=== PATIENT | female | born 1995 | race Caucasian/White ===

== ENCOUNTER 2016-11-16 05:46 | Emergency (ER) | payer OTHER ==
[~2016-11-16] VITALS: Ht 170.2 cm; Wt 107.7 kg
[~2016-11-16 05:46] MED LIST: BACTRIM,SEPT1 TABLET PO; CLEOCIN300 MG PO; KEFLEX500 MG PO; MACROBID100 MG PO; Motrin PO; PRENATAL TABLE1 EAC3 PO; Percocet 5/325,Endoc PO; TYLENOL WITH C1 EACH PO; ZOFRAN ODT4 MG PO; ZOFRAN4 MG PO
[2016-11-16] MEDS ORDERED: PEN-VEE K,VEET500 MG PO (06:27)
[2016-11-16 07:43] VITALS: BP 125/75
== END 2016-11-16 07:44 | disposition home or self-care (01) ==
LOC: EME 05:46
PROC: 3E0T3BZ Introduction of Anesthetic Agent into Peripheral Nerves and Plexi, Percutaneous Approach (ICD-10-PCS; principal; 2016-11-16)
DX: O99.613 Diseases of the digestive system complicating pregnancy, third trimester (principal); K02.9 Dental caries, unspecified; K08.89 Other specified disorders of teeth and supporting structures; Z3A.32 32 weeks gestation of pregnancy
CPT/HCPCS: 99281; 99283; S0020

== ENCOUNTER 2016-11-27 13:34 | Outpatient (CLI) | payer OTHER ==
[~2016-11-27] VITALS: Ht 167.6 cm; Wt 109.0 kg
[~2016-11-27 13:34] MED LIST changes: +PEN-VEE K,VEET500 MG PO
[2016-11-27 13:37] VITALS: BP 111/63
[2016-11-27] MEDS ORDERED: KEFLEX500 MG PO (14:01)
[2016-11-27] MEDS ORDERED: PRENATAL TABLE1 EAC3 PO (14:03)
[2016-11-27 16:00] LABS: ADD MIUA? YES; BILIRUBIN NEGATIVE; BLOOD NEGATIVE; COLOR YELLOW ((YELLOW)); GLUCOSE (STRIP) NEGATIVE; KETONES NEGATIVE; LEUKOCYTES LARGE; NITRITE NEGATIVE; PROTEIN (STRIP) NEGATIVE; SPECIFIC GRAVITY 1.006 (1.000-1.030); UROBILINOGEN 0.2 MG/DL (0.2-1.0)
[2016-11-27 16:11] LABS: RED BLOOD CELLS 0-5 /HPF (0-5); WHITE BLOOD CELLS 20-30 /HPF (0-5)
[2016-11-27 16:12] LABS: BACTERIA 3+ /HPF; EPITHELIAL CELLS 1+ /HPF; MUCUS TRACE /LPF; UCUL ADDED? YES
[2016-11-27 16:22] LABS: AMPHETAMINES QUANT VALUE 0 NG/ML; BARBITUATES QUANT VALUE 0 NG/ML; BENZODIAZEPINES QUANT VALUE 0 NG/ML; BENZODIAZEPINES, URINE SCREEN Negative (200 ng/mL); MARIJUANA QUANT VALUE 0 NG/ML; OPIATES QUANTITATIVE VALUE 0 NG/ML; PHENCYCLIDINE QUANT VALUE 0 NG/ML
== END 2016-11-27 15:47 | disposition home or self-care (01) ==
LOC: LDRP-OP → 2WEST 13:35 → LDRP-OP 01-26 02:45
PROVIDERS: Advanced Practice Midwife
DX: O46.92 Antepartum hemorrhage, unspecified, second trimester (principal); O99.89 Other specified diseases and conditions complicating pregnancy, childbirth and the puerperium; Z3A.25 25 weeks gestation of pregnancy
CPT/HCPCS: 59025; 80306 90; 81003; 87086; G0378

== ENCOUNTER 2016-12-03 11:06 | Inpatient (IN) | payer OTHER ==
[2016-12-03] VITALS (8 sets, daily range): BP systolic 98–129; BP diastolic 56–80
[~2016-12-03] VITALS: Ht 167.6 cm; Wt 108.7 kg
[2016-12-03 12:07] LABS: HEMATOCRIT 28.6 % (36.0-46.0); MCH 24.9 PG (29.0-34.0); MCHC 31.5 G/DL (30.0-36.0); MCV 79.2 FL (83-99); MEAN PLAT.VOLUME 9.8 uM^3 (9.5-12.4); PLATELET COUNT 157 K/uL (156-360); RBC DIS.WIDTH-CV 13.9 % (11.8-14.6); RBC DIS.WIDTH-SD 39.6 % (39-53); RED BLOOD COUNT 3.61 M/uL (3.80-5.20); WHITE BLOOD COUNT 9.9 K/uL (4.1-10.2)
[2016-12-03 12:10] LABS: EOSINOPHIL (%) 0.2 % (0-5); IMMATURE GRANULOCYTE (%) 0.6 % (0.0-0.7); IMMATURE GRANULOCYTE COUNT 0.1 K/uL; MONOCYTE (%) 7.1 % (3-12); MONOCYTE COUNT 0.7 K/uL (0-0.8); NEUTROPHIL (%) 71.7 % (45-76); NEUTROPHIL COUNT 7.1 K/uL (1.8-6.4)
[2016-12-03 12:19] LABS: AMPHETAMINES QUANT VALUE 0 NG/ML; BARBITUATES QUANT VALUE 0 NG/ML; BENZODIAZEPINES QUANT VALUE 0 NG/ML; BENZODIAZEPINES, URINE SCREEN Negative (200 ng/mL); MARIJUANA QUANT VALUE 0 NG/ML; OPIATES QUANTITATIVE VALUE 0 NG/ML; PHENCYCLIDINE QUANT VALUE 0 NG/ML
[2016-12-03 12:20] LABS: ANION GAP 8 MEQ/L (2-14); CHLORIDE 107 MEQ/L (99-109); POTASSIUM 3.9 MEQ/L (3.7-5.4); SAMPLE HEMOLYSIS CHECK 0; SAMPLE ICTERIC CHECK 0; SAMPLE LIPEMIA CHECK 0; SODIUM 137 MEQ/L (136-147); TOTAL BILIRUBIN 0.3 MG/DL (0.0-1.0)
[2016-12-03 12:26] LABS: ALKALINE PHOSPHATASE 142 IU/L (3-129); GFR ESTIMATE (CALCULATED) > 59 mL/min/; GLUCOSE 74 mg/dL (70-99); UREA NITROGEN (BUN) 8 mg/dL (9-23)
[2016-12-03 12:41] LABS: FIBRINOGEN 367 MG/DL (160-450)
[2016-12-03 12:48] LABS: PTT 27.9 (25-32)
[2016-12-03 14:00] LABS: HEMATOCRIT 28.1 % (36.0-46.0); MCV 79.4 FL (83-99)
[2016-12-04 00:32] VITALS: BP 118/61
[2016-12-04 03:27] VITALS: BP 96/53
[2016-12-04 07:04] LABS: EOSINOPHIL (%) 0.4 % (0-5); HEMATOCRIT 24.5 % (36.0-46.0); IMMATURE GRANULOCYTE (%) 0.4 % (0.0-0.7); LYMPHOCYTE COUNT 2.5 K/uL (1.0-2.8); MCH 24.9 PG (29.0-34.0); MCV 80.3 FL (83-99); MEAN PLAT.VOLUME 9.8 uM^3 (9.5-12.4); MONOCYTE (%) 7.8 % (3-12); MONOCYTE COUNT 0.8 K/uL (0-0.8); NEUTROPHIL (%) 67.1 % (45-76); NEUTROPHIL COUNT 6.9 K/uL (1.8-6.4); PLATELET COUNT 134 K/uL (156-360); RBC DIS.WIDTH-CV 14.1 % (11.8-14.6); RED BLOOD COUNT 3.05 M/uL (3.80-5.20); WHITE BLOOD COUNT 10.3 K/uL (4.1-10.2)
[2016-12-04 07:38] VITALS: BP 115/77
[2016-12-04 15:04] VITALS: BP 100/57
[2016-12-04 18:57] VITALS: BP 114/64
[2016-12-04 22:10] VITALS: BP 127/73
[2016-12-05 03:05] VITALS: BP 115/78
[2016-12-05 08:04] VITALS: BP 112/63
[2016-12-05 11:22] VITALS: BP 127/70
[2016-12-05 19:00] VITALS: BP 121/73
[2016-12-05 23:00] VITALS: BP 123/64
[2016-12-06 03:23] VITALS: BP 109/58
[2016-12-06 05:40] LABS: MCH 25.9 PG (29.0-34.0); MCHC 32.1 G/DL (30.0-36.0); MCV 80.8 FL (83-99); RBC DIS.WIDTH-SD 38.8 % (39-53); RED BLOOD COUNT 2.97 M/uL (3.80-5.20); WHITE BLOOD COUNT 8.4 K/uL (4.1-10.2)
[2016-12-06 05:47] LABS: MEAN PLAT.VOLUME 9.4 uM^3 (9.5-12.4); PLATELET COUNT 181 K/uL (156-360)
[2016-12-06 07:08] VITALS: BP 111/67
[2016-12-06] MEDS ORDERED: ENDOCET 5-3251 EACH PO (09:08)
[2016-12-06] MEDS ORDERED: CHROMAGEN,1 CAPSULE PO (09:08)
[2016-12-06] MEDS ORDERED: IBUPROFEN800 MG PO (09:08)
[2016-12-06 10:52] VITALS: BP 120/68
[2016-12-06 14:33] VITALS: BP 112/64
== END 2016-12-06 17:10 | disposition home or self-care (01) | DRG 765 ==
LOC: LDRP-OP 11:06 → 2WEST 11:07 → LDRP-OP 01-19 18:09
PROVIDERS: Obstetrics & Gynecology
PROC: 0UL70CZ Occlusion of Bilateral Fallopian Tubes with Extraluminal Device, Open Approach (ICD-10-PCS; principal; 2016-12-03)
PROC: 10D00Z1 Extraction of Products of Conception, Low, Open Approach (ICD-10-PCS; principal; 2016-12-03)
DX: O99.013 Anemia complicating pregnancy, third trimester (principal); O45.93 Premature separation of placenta, unspecified, third trimester; D62 Acute posthemorrhagic anemia; O64.8XX1 Obstructed labor due to other malposition and malpresentation, fetus 1; O34.211 Maternal care for low transverse scar from previous cesarean delivery; O99.02 Anemia complicating childbirth; Z37.0 Single live birth; Z3A.37 37 weeks gestation of pregnancy; O65.5 Obstructed labor due to abnormality of maternal pelvic organs; D50.9 Iron deficiency anemia, unspecified; Z30.2 Encounter for sterilization; O69.81X1 Labor and delivery complicated by cord around neck, without compression, fetus 1
CPT/HCPCS: 80053; 80306 90; 85014; 85018; 85025; 85027; 85384; 85610; 85730; 86850; 86900; 86901; 86920; 88302; 88307; J0690; J2274; J2300; J2405; J2590; J3010; J7120

== ENCOUNTER 2017-12-19 08:27 | Emergency (ER) | payer OTHER ==
[~2017-12-19] VITALS: Ht 170.2 cm; Wt 101.6 kg
[~2017-12-19 08:27] MED LIST changes: +CHROMAGEN,1 CAPSULE PO; +ENDOCET 5-3251 EACH PO; +IBUPROFEN800 MG PO
[2017-12-19 08:41] VITALS: BP 118/79
== END 2017-12-19 10:59 | disposition left against medical advice (07) ==
LOC: EME 08:27
DX: R22.0 Localized swelling, mass and lump, head (principal); R11.10 Vomiting, unspecified; Z53.21 Procedure and treatment not carried out due to patient leaving prior to being seen by health care provider
CPT/HCPCS: 80048; 84702; 85025